=== PATIENT | female | born 1980 | race Caucasian/White ===

== ENCOUNTER 2017-02-04 14:25 | Emergency (ER) | payer OTHER ==
--- NOTE | ~2017-02-04 | CR170 ---
[facility] A Service of [facility] RADIOLOGY TEXT RESULTS PATIENT: FACUNDO PEREZ LOCATION: SED : 82 UNIT #: [id number] AGE: [address]: Roberta Horton APRN SEX: F ORDER DR: [id number] [place] [id number] E MR#: [id number] Acc #: [id number] NAME: FACUNDO PEREZ : 1980 SEX: F STUDY DATE/TIME: 02/04/2017 14:12 UNIT: SED ROOM: STUDY DESCRIPTION: CR Knee 2 Views Rt Attending Physician: Roberta Horton A.P.R.N. Referring Physician: Roberta Horton A.P.R.N. Ordering Physician: Roberta Rothman A.P.R.N. Primary Care Physician: Gail Primary Care Physician MEDICAL IMAGING REPORT This report is preliminary unless electronic signature is present. EXAM Right knee, 3 views COMPARISON None INDICATIONS A 36-year-old female with right knee pain after bending over this morning at which have to be a popping sound. FINDINGS Evaluation for suprapatellar effusion is limited due to obliquity of the lateral view. Bones are anatomically aligned. There is no evidence of acute fracture or significant degenerative change. There is a benign bone island in the medial tibial metaphysis. IMPRESSION 1. No evidence of acute fracture, dislocation, or significant degenerative change. 2. Please note that evaluation for suprapatellar effusion is limited due to obliquity of the lateral view. Clinical correlation recommended. Dictated by... Jose Dodson M.D. THIS IS AN ELECTRONICALLY VERIFIED REPORT Jose Dodson M.D. at 02/07/2017 12:25 AM BELLA/kiara [facility] A Service of [facility] RADIOLOGY TEXT RESULTS PATIENT: FACUNDO PEREZ LOCATION: SED : [birth year] UNIT #: [id number] AGE: [address]: Roberta Horton APRN SEX: F ORDER DR: TD: 02/05/2017 00:44 JOB #: [id number] MEDICAL IMAGING REPORT Page 1 of 1
[~2017-02-04 14:25] MED LIST: A/B OTIC OT; AMOXICILLIN PO; BACTRIM DS TABL1 TA1 PO; KEFLEX500 MG PO; LORTAB 5/500 TA1 TA1 PO; MACRODANTIN PO; NO MEDICATIONS; NSAID; PRENATAL1 TA1 PO; STEROID; VOLTAREN50 MG PO; VOLTAREN75 MG PO
== END 2017-02-04 15:32 | disposition home or self-care (01) ==
LOC: SED 14:25
DX: S83.91XA Sprain of unspecified site of right knee, initial encounter (principal); Z90.710 Acquired absence of both cervix and uterus; Z98.890 Other specified postprocedural states; X58.XXXA Exposure to other specified factors, initial encounter; Y92.009 Unspecified place in unspecified non-institutional (private) residence as the place of occurrence of the external cause
CPT/HCPCS: 29505; 73560; 99283